=== PATIENT | male | born 1990 | race Two or more races ===

== ENCOUNTER 2024-10-23 07:58 | Emergency (ER) | payer OTHER ==
[~2024-10-23] VITALS: Ht 167.6 cm; Wt 77.1 kg
[2024-10-23 08:22] VITALS: BP 132/77; TEMP 98; O2SAT 99
== END 2024-10-23 08:25 | disposition home or self-care (01) ==
LOC: ER 08:20
DX: Z20.811 Contact with and (suspected) exposure to meningococcus (principal)

== ENCOUNTER 2024-12-04 06:31 | Emergency (ER) | payer BC, OTHER ==
[~2024-12-04] VITALS: Ht 167.6 cm; Wt 113.4 kg
[2024-12-04 06:35] VITALS: BP 163/108; TEMP 101.9
[2024-12-04 06:52] VITALS: O2SAT 96
== END 2024-12-04 08:39 | disposition home or self-care (01) ==
LOC: ER 06:34
DX: B34.9 Viral infection, unspecified (principal); R09.81 Nasal congestion; R05.9 Cough, unspecified; Z20.822 Contact with and (suspected) exposure to COVID-19

== ENCOUNTER 2025-08-12 13:10 | Emergency (ER) | payer BC, OTHER ==
[~2025-08-12] VITALS: Ht 167.6 cm; Wt 115.7 kg
[2025-08-12 13:18] VITALS: TEMP 98
[2025-08-12] MEDS ORDERED: DICYCLOMINE HCL INJ 20 MG/2 ML AMPUL IM ONE (13:27)
[2025-08-12] MEDS ORDERED: KETOROLAC TROMETHAMINE 15 MG/ML VIAL ONE ×2 (13:27→15:34)
[2025-08-12] MEDS ORDERED: ONDANSETRON HCL/PF 4 MG/2 ML VIAL ONE (13:27)
[2025-08-12] MEDS: ONDANSETRON HCL/PF 4 MG/2 ML VIAL IVP ONE (13:30)
[2025-08-12] MEDS: IV NS 0.9% 1,000 ML BAG IV ONE ×2 (13:30→14:19)
[2025-08-12] MEDS: KETOROLAC TROMETHAMINE 15 MG/ML VIAL IV ONE ×2 (13:31→15:36)
[2025-08-12] MEDS: DICYCLOMINE HCL INJ 20 MG/2 ML AMPUL IM ONE (13:44)
[2025-08-12 13:48] LABS: PLATELET COUNT (AUTO) 275 K/uL (150-450); RED BLOOD CELL COUNT(AUTO) 5.69 MIL/uL (4.5-6.0); RED CELL DISTRIBUTION WIDTH 13.3 % (11.5-15.0); WHITE BLOOD COUNT (AUTO) 16.7 K/uL (4.3-11.0)
[2025-08-12 13:55] LABS: CALCIUM, SERUM 10.3 mg/dL (8.5-10.1); CREATININE 1.3 mg/dL (0.6-1.3); SODIUM SERUM 142.0 mmol/L (136-145); UREA NITROGEN, BLOOD 12.0 mg/dL (7-18)
[2025-08-12 14:01] LABS: ASPARTATE AMINOTRANSFERASE 31.0 U/L (15-37); TOTAL PROTEIN, SERUM 9.5 g/dL (6.4-8.2)
[2025-08-12] MEDS ORDERED: KETO10TA2 PO (16:54)
[2025-08-12] MEDS ORDERED: ONDA4TAB11 PO (16:54)
[2025-08-12] MEDS ORDERED: DICY20TA11 PO (16:54)
[2025-08-12] MEDS ORDERED: LOPE2CAP40 PO (16:55)
[2025-08-12 17:00] VITALS: BP 130/75; O2SAT 97
== END 2025-08-12 17:00 | disposition home or self-care (01) ==
LOC: ER 13:18
DX: A08.4 Viral intestinal infection, unspecified (principal)
CPT/HCPCS: 99284; 96374; 96361; 96375; 96376; 85025; 80048; 83690; 80076; 36415; 96372; J1885 ×2; J2405; J7030; J0500